=== PATIENT | male | born 1965 | race Caucasian/White ===

== ENCOUNTER → 2024-09-11 16:01 | Outpatient (REF) | payer OTHER, SELFPAY | LOC: RAD 16:01 | PROVIDERS: ATTENDING PHYSICIAN Hospitalist | DX: R10.84 Generalized abdominal pain (principal) | CPT/HCPCS: 74177; Q9967 ==

== ENCOUNTER 2024-11-13 06:24 | Day surgery (SDC) | payer OTHER, SELFPAY | END 2024-11-13 15:11 | disposition home or self-care (01) | LOC: GI 06:24 | PROVIDERS: ATTENDING PHYSICIAN Student in an Organized Health Care Education/Training Program | DX: Z12.11 Encounter for screening for malignant neoplasm of colon (principal); D12.4 Benign neoplasm of descending colon; K57.30 Diverticulosis of large intestine without perforation or abscess without bleeding; K30 Functional dyspepsia; K20.90 Esophagitis, unspecified without bleeding; Q39.8 Other congenital malformations of esophagus; K25.9 Gastric ulcer, unspecified as acute or chronic, without hemorrhage or perforation; K31.A0 Gastric intestinal metaplasia, unspecified; K31.89 Other diseases of stomach and duodenum | CPT/HCPCS: 45385; 43239; 88305; 88342 ==

== ENCOUNTER 2025-01-23 06:33 | Day surgery (SDC) | payer OTHER, SELFPAY | END 2025-01-23 10:39 | disposition home or self-care (01) | LOC: GI 06:33 | PROVIDERS: ATTENDING PHYSICIAN Student in an Organized Health Care Education/Training Program | DX: K25.3 Acute gastric ulcer without hemorrhage or perforation (principal); K31.7 Polyp of stomach and duodenum; Q40.2 Other specified congenital malformations of stomach; K31.89 Other diseases of stomach and duodenum; K31.A19 Gastric intestinal metaplasia without dysplasia, unspecified site | CPT/HCPCS: 43239; 88305; 88342 ==

== ENCOUNTER 2025-04-05 06:00 | Day surgery (SDC) | payer OTHER, SELFPAY ==
[2025-04-05 08:04] VITALS: BP 102/65
[2025-04-05 08:13] VITALS: BMI 31.0
[2025-04-05 08:14] VITALS: BMI 31.0
[2025-04-05 10:22] VITALS: BP 102/69
[2025-04-05 10:30] VITALS: BP 108/71
== END 2025-04-05 10:50 | disposition home or self-care (01) ==
LOC: GI 06:00
PROVIDERS: ATTENDING PHYSICIAN Internal Medicine Gastroenterology
DX: K31.89 Other diseases of stomach and duodenum (principal); K31.7 Polyp of stomach and duodenum; K31.A19 Gastric intestinal metaplasia without dysplasia, unspecified site; K31.9 Disease of stomach and duodenum, unspecified
CPT/HCPCS: 43251; 43239; 88305

== ENCOUNTER 2025-04-08 14:43 | Observation (INO) | payer OTHER, SELFPAY ==
[2025-04-08 11:55] VITALS: BP 126/81
[2025-04-08 12:19] LABS: % Basophils 0.8 % (0-2); % Eosinophils 2.3 % (0-6); % Immature Granulocytes 0.2 % (0-0.5); % Lymphocytes 24.8 % (20.5-51.1); % Monocytes 10.8 % (1.7-9.3); % Neutrophils 61.1 % (42.2-75.2); Absolute Basophils 0.1 10^3/uL (0-0.2); Absolute Eosinophils 0.1 10^3/uL (0-0.7); Absolute Lymphocytes 1.5 10^3/uL (1.2-3.4); Absolute Monocytes 0.7 10^3/uL (0.1-0.6); Absolute Neutrophils 3.8 10^3/uL (1.4-6.5); Hematocrit 37.4 % (39.0-52.0); Hemoglobin 13.3 g/dL (13.0-18.0); Mean Corp Hgb Conc. 35.6 g/dL (33.0-37.0); Mean Corpuscular Hgb 31.7 pg (27.0-31.0); Mean Platelet Volume 8.9 fL (7.4-10.4); Nucleated Red Blood Cells % 0 % (-); Platelet Count 327 10^3/uL (130-400); Red Cell Dist. Width 12.8 % (11.5-14.5); White Blood Cell Count 6.2 10^3/uL (4.8-10.8)
[2025-04-08 12:28] LABS: INR 1.08; PT 14.3 Sec (11.4-14.6)
[2025-04-08 12:45] LABS: ALT (SGPT) 22 U/L (0-50); AST (SGOT) 22 U/L (17-59); Albumin 4.1 g/dl (3.5-5.0); Alkaline Phosphatase 52 U/L (38-126); Blood Urea Nitrogen 18 mg/dl (9-20); Calcium 9.7 mg/dl (8.4-10.2); Carbon Dioxide 29 mmol/L (22-30); Chloride 107 mmol/L (98-107); Glucose 100 mg/dl (70-99); Potassium 4.9 mmol/L (3.5-5.1); Sodium 141 mmol/L (135-145); Total Bilirubin 0.6 mg/dl (0.2-1.3); eGFR > 60.00
[2025-04-08 13:44] VITALS: BMI 31.5
[2025-04-08 13:45] VITALS: BP 125/70
--- NOTE | 2025-04-08 13:58 | ED.GENMED ---
History of Present Illness
General
Chief Complaint: Rectal Bleeding
Source: patient and records
Exam Limitations: none
Time Seen by Provider: 04/08/25 13:20
Nursing documentation reviewed up to this point in time: agreed with
History of Present Illness
History of Present Illness:
60-year-old male who presents with black stool, status post gastric polyp removal by Dr. Zamudio, started the next day on Protonix twice daily had a loose stool which was coffee-ground like and then 2 more solid black stools no headache no
dizziness syncope no abdominal pain no fever no vomiting no alcohol no NSAID use
Past History
Past History
ED Past Medical History: Other (Gastric polyp)
Review of Systems
Review of Systems
All Other Systems: Not applicable
Constitutional: Denies fever or fatigue
EENT: Reports no symptoms
Respiratory: Reports no symptoms
Cardiac: Reports no symptoms
ABD/GI: Reports black stools; Denies abdominal pain or diarrhea
: Reports no symptoms; Denies bleeding
Musculoskeletal: Reports no symptoms
Skin: Reports no symptoms
Neurological: Reports no symptoms; Denies dizzy
Endocrine: Reports no symptoms
Hematologic/Lymphatic: Reports no symptoms
Psychiatric: Reports no symptoms
Phy Exam
Physical Exam
Physical Exam:
Physical Exam
General: no apparent distress, not acutely ill
Neck: No pallor
Heart: s1/s2 regular rate and rhythm, no murmur. equal radial pulses.
Lungs: no acute respiratory distress. clear bilaterally
Abdomen: Soft nontender, rectal black guaiac positive stool
Neuro: alert and oriented. no focal neurological deficits
Skin: no rash
Psychiatric: well kept. interactive and cooperative
Extremities: no edema.
Course
Orders/Labs/Results
Orders:
Orders
04/08/25 12:08
PTT Urgent
Prothrombin Time Urgent
04/08/25 12:09
Type+Screen Urgent
Complete Blood Count/With Diff Urgent
Comprehensive Metabolic Panel Urgent
04/08/25 12:30
ABO2 Routine
BBK Wristband Number:
Associate notified that ABO2 has been ordered: [id number]
Date: 04/08/25
Time: 12:31
Textile Machinery Instructor ID: [id number]
Abnormal Lab Results
04/08/25
12:09
RBC 4.20 L 10^6/uL
(4.70-6.10)
Hct 37.4 L %
(39.0-52.0)
MCH 31.7 H pg
(27.0-31.0)
Absolute Monos (auto) 0.7 H 10^3/uL
(0.1-0.6)
Monocytes % 10.8 H %
(1.7-9.3)
Glucose 100 H mg/dl
(70-99)
04/08/25 12:09
04/08/25 12:09
Vital Signs
Initial and Last Documented VS:
Initial Vital Signs
Temp Pulse Resp BP Pulse Ox
98.6 F 76 16 126/81 98
04/08/25 11:55 04/08/25 11:55 04/08/25 11:55 04/08/25 11:55 04/08/25 11:55
Last Documented Vital Signs
Temp Pulse Resp BP Pulse Ox
98.6 F 76 16 126/81 98
04/08/25 11:55 04/08/25 11:55 04/08/25 11:55 04/08/25 11:55 04/08/25 11:55
MDM/Problems Addressed
Differential Diagnosis Includes:
Postprocedural bleeding gastritis duodenitis
MDM/Problems Addressed:
Black stool
Chronic conditions affecting care:
Gastric polyp
Acute Exacerbation and/or Progression of Chronic Illness:
Gastric
*Pulse Oximetry
Patient hypoxic: no
Comment: 99
*Critical Care Note
Total Time (30-74mins, 75-104mins- exclusive of procedures): Not Applicable
Data Reviewed
Review of Other/Old Records Reveals: Labs, Operative Reports and Progress Notes
Source: patient
Further Testing Considered But Not Given:
CT scan
Update Note
Update Note:
Update patient hemodynamically stable, reviewed treatment options with him and with on-call GI recommended admitting placing on a PPI,
ED Attending Note
-
Portions of this chart may have been created with voice recognition software.� Occasional wrong word or��sound alike� substitutions may have occurred due to the inherent limitations of voice recognition software.
Discharge Plan
Departure
Patient Disposition: Admit
Date of Disposition: 04/08/25
Time of Disposition: 14:02
Admit to: Telemetry
Presentation/result/management discussed w/ accepting MD/DO: Hospitalist
Patient with high blood pressure during this ER visit?: No
Condition: Good
Discharge Problem:
GI bleed
Prescriptions:
No Action
No Current Medications
0
Referrals:
Isiah Jenkins MD [Family Provider, Internal Medicine]
Interventions
Interventions:
*Risk Screen - Suicide Last Done: 04/08/25 11:55
*General Assessment Last Done: 04/08/25 13:46
*Neglect/Abuse Screening Last Done: 04/08/25 11:55
*ED- Fall Risk Assessment Last Done: 04/08/25 13:46
*ED COVID-19 Vaccine History Last Done: 04/08/25 13:46
WR-Zyeyvo-Avguxdkosq Assessment Last Done: 04/08/25 13:46
ED- Cardiac Assessment Last Done: 04/08/25 13:46
ED- Pulmonary Assessment Last Done: 04/08/25 13:46
Discharge Date and Time
Print Language: EQUATORIAL GUINEAN
[2025-04-08 14:00] VITALS: BP 120/85
--- NOTE | 2025-04-08 14:19 | HPS.HSE ---
Family Physician
-
Family Physician: Isiah Jenkins
Chief Complaint
-
Blood in stool
History of Present Illness
60-year-old male with no significant past medical history is presenting from home with complaints of blood in stool. Patient was seen and evaluated by Dr. Gaitan last year and patient underwent endoscopy and colonoscopy. Upper endoscopy patient was
found to have a gastric ulcer and he was treated with antiacid medication per patient. Patient had a surveillance endoscopy in December where he was found to have a gastric polyp. Patient subsequently underwent EGD by Dr. Zamudio and underwent gastric
polypectomy on . Post polypectomy patient stated her first bowel movement on Wednesday noticed blood in the stool. Stool was black in color per patient. States of passing increasing amount of flatulence. No abdominal cramping. States 3
episode of melanotic stools. No nausea no vomiting. No lightheaded and dizziness. No chest pain or shortness of breath. Patient denies any medical condition and does not take any prescription medications.
Medical History
Past Medical History
Past Medical History: Reports Other
Additional Past Medical History:
Gastric ulcer
Gastric polyps
Past Surgical History: Reports Other
Additional Past Surgical History:
Inguinal hernia repair
Social History
Tobacco: Former Smoker
Alcohol: None
Personal:
Living: With Family
Family History
Family History: Not pertinent
Allergies / Home Medications
Allergies reflects when Allergies were last updated in [facility].
Home Medications with original date entered in [facility]
Allergy/Medication List:
Allergies
Allergy/AdvReac Type Severity Reaction Status Date / Time
codeine Allergy stomach Verified 04/05/25 08:03
pain
Home Medications
No Meds [No Current Medications] 04/05/25
Review of Systems
-
History Source: Patient
A 12 point ROS was completed and negative except as noted: Yes
Physical Exam
Vital Signs
Vital Signs
Temp Pulse Resp BP Pulse Ox
98.6 F 76 16 126/81 98
04/08/25 11:55 04/08/25 11:55 04/08/25 11:55 04/08/25 11:55 04/08/25 11:55
Physical Exam
General: Well Developed, Well Nourished, No Apparent Distress, Comfortable and Conversant
HEENT: NormoCephalic, Anicteric, Moist mucous membranes, Atraumatic, Good Dentition, No Ptosis, Nose Appears Normal and Ears Appear Normal
Respiratory: Clear
Cardiac: S1/S2 and Regular Rhythm; No Murmur or Rub
GI: Soft, Non Tender, Non Distended and Normal Bowel Sounds; No Organomegaly
Rectal: Deferred by Provider
Musculoskeletal: No Clubbing, No Cyanosis and No Edema
Skin: Warm; No Rash
Neuro: Awake, Alert, Oriented, AO x 3, No Motor Deficits and Nonfocal/grossly intact
Psych: Calm
Laboratory Results
-
04/08/25 12:09
04/08/25 12:09
Laboratory Results
PT 14.3 Sec (11.4-14.6) 04/08/25 12:08
INR 1.08 04/08/25 12:08
APTT 30.0 Sec (23.4-35.0) 04/08/25 12:08
Total Bilirubin 0.6 mg/dl (0.2-1.3) 04/08/25 12:09
AST 22 U/L (17-59) 04/08/25 12:09
ALT 22 U/L (0-50) 04/08/25 12:09
Alkaline Phosphatase 52 U/L (38-126) 04/08/25 12:09
Impression/Plan
-
#Gastric post polypectomy bleeding
#Gastric ulcer history
Okay for clears. N.p.o. past midnight in case of endoscopy tomorrow-d/w with GI
Start patient on gentle IV fluids
Start patient on PPI
Trend H&H
type and screen pending
To IV at all times
If with active episode of bleeding consider CT angiogram of the abdomen pelvis
Gastroenterology evaluation
DVT prophylaxis SCDs in the setting of GI bleed
Full code
Discussed with spouse at bedside in detail
Discussed with gastroenterology
[2025-04-08] MEDS: PROTONIX IV 80 MG IV (14:38)
[2025-04-08] MEDS: PROTONIX 100 IV (14:44)
[2025-04-08 15:32] VITALS: BMI 30.7
[2025-04-08 15:40] VITALS: BP 128/81; BP 130/88; BP 131/79; PULSE 64; PULSE 70; PULSE 72
--- NOTE | 2025-04-08 15:40 | PTCARENOTE ---
Pt arrived to [facility] from the ED on a stretcher with at side. Pt walked from stretcher to bed without incident. Pt has PPI gtt infusing. Full head to toe assessed. Pt oriented to room and call hylton. Bed locked and in lowest position. Care
ongoing.
[2025-04-08] MEDS: NSS 1000 IV (16:19)
[2025-04-08 18:29] LABS: Hematocrit 36.6 % (39.0-52.0); Hemoglobin 13.2 g/dL (13.0-18.0)
[2025-04-08 19:00] VITALS: BP 117/72; BP 120/81; BP 129/71; PULSE 71; PULSE 73; PULSE 89
[2025-04-08 23:00] VITALS: BP 111/66
[2025-04-09 00:10] VITALS: BP 118/70; BP 120/73; BP 127/80; PULSE 68; PULSE 72; PULSE 79
[2025-04-09 00:51] LABS: Hematocrit 36.4 % (39.0-52.0); Hemoglobin 13.1 g/dL (13.0-18.0)
[2025-04-09 03:00] VITALS: BP 109/64
[2025-04-09] MEDS: NSS 1000 IV (04:02)
[2025-04-09 05:11] VITALS: BP 120/78; BP 124/84; BP 125/80; PULSE 74; PULSE 76; PULSE 81
[2025-04-09 06:04] VITALS: BMI 30.8
[2025-04-09 07:05] VITALS: BP 114/71
[2025-04-09 07:12] LABS: Hematocrit 35.8 % (39.0-52.0); Hemoglobin 12.8 g/dL (13.0-18.0)
[2025-04-09 07:22] LABS: APTT 30.9 Sec (23.4-35.0); INR 1.13; PT 14.8 Sec (11.4-14.6)
--- NOTE | 2025-04-09 08:09 | CON.GI ---
Consultation
-
Date/Time Consultation Requested: 04/08/25 at 5pm
Date/Time Consultation Performed: 04/09/25 at 6am
Requesting Provider: Eduardo
Performing Provider: Karina
Reason for Consultation: GIB
Medical History
Chief Complaint / HPI
Chief Complaint: GIB
History of Present Illness:
This patient is a 60-year-old man with a history of a gastric polyp Which was removed endoscopically on 04 05. Patient went home uneventful but then had some dark tarry bowel movements. He states it only happened once the day after and then several
times between Wednesday and Wednesday morning. He did not have any dizziness or abdominal pain. He did call our service and I did tell him to come to the emergency room. He has baseline back in December in terms of his hemoglobin was in the 15. In the
ER he had a hemoglobin in the 13 range. He has not had any more bowel movements since yesterday. His hemoglobin since being in the hospital has remained stable on multiple blood draws. He feels well and has no abdominal pain. He did speak with
Dr. Gaitan over the weekend his primary section supervisor. He was started on a PPI at the time.
Past Medical History
Past Medical History: Other (Gastric polyps)
Past Surgical History: Other (Inguinal hernia repair)
Social History
Tobacco: Former Smoker
Family History
Family History: Reviewed & Not Pertinent
Allergies / Home Medications
Allergy/AdvReac Type Severity Reaction Status Date / Time
codeine Allergy stomach Verified 04/05/25 08:03
pain
�Medication �Instructions �Recorded
pantoprazole 40 mg tablet,delayed 40 mg PO BID Gastrointestinal Issue 04/08/25
release
Review of Systems
-
All other systems: A 12 pt ROS was Negative except as stated above in HPI
Vital Signs
Temp Pulse Resp BP Pulse Ox
98.1 F 70 16 114/71 98
04/09/25 07:05 04/09/25 07:05 04/09/25 07:05 04/09/25 07:05 04/09/25 07:05
Physical Exam
Exam
General: Comfortable
HEENT: Anicteric
Cardiac: S1/S2
GI: Soft and Non Tender
Neuro: Awake, Alert and Oriented
Psych: Calm
Results
WBC 6.2 10^3/uL (4.8-10.8) 04/08/25 12:09
Hgb 12.8 g/dL (13.0-18.0) L 04/09/25 06:42
Hct 35.8 % (39.0-52.0) L 04/09/25 06:42
MCV 89.0 fL (80.0-94.0) 04/08/25 12:09
Plt Count 327 10^3/uL (130-400) 04/08/25 12:09
Absolute Neuts (auto) 3.8 10^3/uL (1.4-6.5) 04/08/25 12:09
PT 14.8 Sec (11.4-14.6) H 04/09/25 06:42
INR 1.13 04/09/25 06:42
APTT 30.9 Sec (23.4-35.0) 04/09/25 06:42
Sodium 141 mmol/L (135-145) 04/08/25 12:09
Potassium 4.9 mmol/L (3.5-5.1) 04/08/25 12:09
Chloride 107 mmol/L (98-107) 04/08/25 12:09
Carbon Dioxide 29 mmol/L (22-30) 04/08/25 12:09
BUN 18 mg/dl (9-20) 04/08/25 12:09
Creatinine 1.0 mg/dL (0.7-1.3) 04/08/25 12:09
Calcium 9.7 mg/dl (8.4-10.2) 04/08/25 12:09
Total Bilirubin 0.6 mg/dl (0.2-1.3) 04/08/25 12:09
AST 22 U/L (17-59) 04/08/25 12:09
ALT 22 U/L (0-50) 04/08/25 12:09
Alkaline Phosphatase 52 U/L (38-126) 04/08/25 12:09
Assessment / Plan
-
This patient is a 60-year-old man who had a gastric polyp resected on April 05. He did have self-limited bleeding that occurred since that time last yesterday. His hemoglobin has been stable. For now would do the following:
1. He should be on a PPI twice a day orally
2. He should follow-up with Dr. Gaitan regarding his pathology.
3. Since his hemoglobin is remained stable and has had no further bowel movements he is safe for discharge. I also did discuss this with Dr. Zamudio the interventional endoscopist who did his procedure.
-
-
Thank you for consultation and allowing me to participate in the patient's care. Please call the nutritionist GI physician during the after hours with any questions or concerns.
[2025-04-09 08:24] LABS: Blood Urea Nitrogen 12 mg/dl (9-20); Carbon Dioxide 23 mmol/L (22-30); Chloride 111 mmol/L (98-107); Estimated Creatinine Clearance 93 ml/min; Glucose 93 mg/dl (70-99); Potassium 4.2 mmol/L (3.5-5.1); Sodium 140 mmol/L (135-145); eGFR > 60.00
--- NOTE | 2025-04-09 09:28 | CM ---
CM following re:L discharge planning.
Reviewed pt's chart, met with pt.
Pt is a 60 year old male, admitted with OBS status and primary dx of Gastric post polypectomy bleeding. OBS status explained to the pt, he expressed understanding, politely declined to sign. OBS letter placed on chart, pt has a copy.
Pt reports he lives with spouse ion a 2SH townhouse, has 2 supportive children. Pt described himself as independent in all areas [employer], [employer], works. Pt stated he feels he will be discharged home today and pt stated his spouse will transport home.
PCP: Isiah Jenkins
Pharmacy: [facility]
D/C plan: home with no needs. Spouse to transport.
--- NOTE | 2025-04-09 10:37 | W.PN.HOSP.TC ---
Today's Communication/Plan
-
DC
Assessment / Plan
Assessment / Plan
#Gastric post polypectomy bleeding
#Gastric ulcer history
If symptomatic without GI symptoms.
H&H stable.
On PPI.
Reviewed by GI team today and felt stable from the standpoint for discharge.
Patient is hemodynamically stable and not dizzy.
DC home and follow-up with GI as outpatient.
Discussed with GI this morning.
Anticipated Discharge: Today
Subjective/Interval History
-
Date of Service: April 09, 2025
No further rectal bleeding.
No nausea or vomiting. No abdominal pain. No dizziness.
Objective Data
-
Labs:
Laboratory Results
04/09/25 04/09/25
00:22 06:42
Hgb 13.1 12.8 L
Hct 36.4 L 35.8 L
PT 14.8 H
INR 1.13
APTT 30.9
Sodium 140
Potassium 4.2
Chloride 111 H
Carbon Dioxide 23
BUN 12
Creatinine 0.9
Glucose 93
Calcium 9.0
Vital Signs:
Vital Signs
Temp Pulse Resp BP Pulse Ox
98.1 F 70 16 114/71 98
04/09/25 07:05 04/09/25 07:05 04/09/25 07:05 04/09/25 07:05 04/09/25 09:00
I&O
04/08/25 04/09/25 04/10/25
06:59 06:59 06:59
Intake Total 1999 / 1999
Output Total 1550 / 1550 400 / 400
Balance 450 / 450 -400 / -400
Review of Systems
-
Constitutional: Denies Fever
Respiratory: Denies Trouble Breathing
Cardiac: Denies Chest Pain
Neuro: Denies Dizzy
Physical Exam
-
General: No Apparent Distress and Comfortable
Respiratory: Non Labored Respirations; Negative Accessory Resp Muscle Use
GI: Soft and Nontender
Neuro: AO x 3
Data Reviewed
-
Labs: Labs Reviewed by me
[2025-04-09 11:12] VITALS: BP 127/74
--- NOTE | 2025-04-10 08:18 | W.DCSUMMARY ---
Discharge Summary
Discharge Data
Date of Admission: 04/08/25
Date of Discharge: 04/09/25
-
Pending Results: No
Hospital Course
Primary diagnosis:
Gastric post polypectomy bleeding
Hospital course:
Patient with history of prior gastric ulcer with a nodular lesion on the same site and had follow-up endoscopy for resection of the polyp which was removed with hot snare. Post polypectomy he was having black stools for 2 to 3 days and so was
referred to the ER. He was put on a PPI since the onset of bleeding by his GI physician. He was hemodynamically stable. His H&H was also stable. Was seen by GI and with no active bleeding felt okay for home. He was tolerating a diet before
discharge.
Consultants on board:
GI - Dr. Karina Bee
Discharge Plan
-
Patient Disposition: Home (Routine Discharge)
Discharge Diagnosis/Procedures: Post gastric polypectomy bleeding
Diet: Regular
Activity: As tolerated
Driving Restrictions: As prior to admission
Bathing Restrictions: None
Referrals:
Isiah Jenkins MD [Family Provider, Internal Medicine]
Michi Gaitan DO [Active, Gastroenterology] - in one to two weeks
Prescriptions:
Continued
pantoprazole 40 mg Tablet,Delayed Release (Dr/Ec)
40 mg PO BID
Discharge Orders:
Discharge Patient (As Directed); Ordered 04/09/25
Ordered By: Houston Clark
Discharge Date and Time
Discharge Date/Time: 04/09/25 12:30
Print Language: SAUDI ARABIAN
== END 2025-04-09 12:30 | disposition home or self-care (01) ==
LOC: 2 SOUTH 14:43
PROVIDERS: ADMITTING PHYSICIAN Hospitalist; ATTENDING PHYSICIAN Internal Medicine; CONSULT PHYSICIAN Internal Medicine; EMERGENCY PHYSICIAN Emergency Medicine; FAMILY PHYSICIAN Internal Medicine
DX: K91.840 Postprocedural hemorrhage of a digestive system organ or structure following a digestive system procedure (principal); Y83.8 Other surgical procedures as the cause of abnormal reaction of the patient, or of later complication, without mention of misadventure at the time of the procedure; Y92.9 Unspecified place or not applicable; K62.5 Hemorrhage of anus and rectum; R14.3 Flatulence; Z87.891 Personal history of nicotine dependence; Z88.5 Allergy status to narcotic agent
CPT/HCPCS: 80048; 80053; 85014; 85018; 85025; 85610; 85730; 86850; 86900; 86901; 99285; G0378

== ENCOUNTER 2025-06-12 06:10 | Day surgery (SDC) | payer OTHER, SELFPAY ==
[2025-06-12 09:15] VITALS: BP 111/72; BMI 30.9
[2025-06-12 09:30] VITALS: BMI 30.9
[2025-06-12 11:18] VITALS: BP 115/81
[2025-06-12 11:32] VITALS: BP 113/76
[2025-06-12 11:45] VITALS: BP 116/85
== END 2025-06-12 12:03 | disposition home or self-care (01) ==
LOC: SDS 06:10
PROVIDERS: ATTENDING PHYSICIAN Internal Medicine Gastroenterology
DX: D13.1 Benign neoplasm of stomach (principal); K31.7 Polyp of stomach and duodenum
CPT/HCPCS: 43251; 88305; 88342